=== PATIENT | female | born 1960 | race Caucasian/White ===

== ENCOUNTER → 2020-08-04 | Day surgery (SDC) | payer OTHER ==
[~2020-08-04] VITALS: Ht 157.5 cm; Wt 74.8 kg
[~2020-08-04] MED LIST: CELEXA20 MG PO; FLEXERIL5 MG PO; IMITREX100 MG PO; MOBIC7.5 MG PO
[2020-08-04 08:09] LABS: HCT 40.3 % (37.0-47.0); HGB 13.4 g/dl (12.5-16.0); MCH 28.9 pg (25.0-31.0); MCHC 33.3 g/dL (32.0-36.0); MCV 86.9 fL (78.0-100.0); MPV 9.9 fL (6.0-9.5); RBC 4.64 M/uL (4.20-5.40); RDW 13.1 % (11.5-14.0); WBC 10.2 K/uL (4.0-10.5)
== END | disposition home or self-care (01) ==
LOC: FAS 07:13
PROVIDERS: Oral & Maxillofacial Surgery
DX: K02.63 Dental caries on smooth surface penetrating into pulp (principal); G43.909 Migraine, unspecified, not intractable, without status migrainosus; F41.9 Anxiety disorder, unspecified; K21.9 Gastro-esophageal reflux disease without esophagitis; Z88.5 Allergy status to narcotic agent; Z79.899 Other long term (current) drug therapy
CPT/HCPCS: D7140; D7210; 36415; 71045; 93005; J1100; J2250; J2405; J2704; J2710; J7120